=== PATIENT | female | born 1945 | race Caucasian/White ===

== ENCOUNTER 2019-06-28 07:52 | Outpatient (CLI) | payer BC, SELFPAY ==
--- NOTE | ~2019-06-28 | XR_ITS ---
EXAMINATION: XR barium swallow modified DATE: 06/28/2019 09:56 INDICATION: Dysphagia. TECHNIQUE: Modified barium esophagram was performed by myself to administered fluoroscopy, in conjun ction with speech pathologist who administered barium in varying consistencies as per speech patholog ist documentation. This was recorded on tape. A single fluoroscopic spot image was recorded. The DA P for this procedure was 1.3 Gycm2. Fluoroscopy exposure time was 2.0 minutes. FINDINGS: A prominent cricopharyngeus contraction is noted. Oral stage: Adequate function. Pharyngeal phase: Adequate function. Laryngeal penetration: None. Aspiration: None. Laryngeal sensitivity: Present. IMPRESSION: No laryngeal penetration or aspiration seen. Please refer to speech pathologist findings and specific feeding recommendations. Reviewed, dictated and finalized at location A. 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 Please refer to speec h pathologist findings and specific feeding recommendations.
--- NOTE | 2019-06-28 09:42 | STOPEVAL ---
MODIFIED BARIUM SWALLOW EVALUATION RESULTS: Thank you for referring this patient to [facility]. Attending Provider: Alejandro Vila APN fax # [phone] Referring Provider: CLAIRE Outpatient Evaluation Start: 06/28/19 09:31 Freq: Status: Active Protocol: Document 06/28/19 09:31 BECHERERT (Rec: 06/28/19 09:42 BECHERERT [id number]) Therapy Assessment Status Assessment Status Assessment Status Evaluation Outpatient Past Medical History Past Medical History Past Medical History Status Patient Denies Significant Past Medical History Evaluation Information Problem Diagnosis dysphagia; per pt: bad cough Onset approximately 1 year ago Subjective Information Pt denies pneumonia or CVA; Query Text:As Reported By Patient/ denies seeing a neurologist Family but states she sees a machine presser Prior Level of Function Prior Swallow Level Prior Intake Method Oral Prior Diet Regular (Level 7 Diet) Prior Liquid Consistency Thin (Level 0 Diet) Pain Assessment Timing of Pain Assessment Timing of Pain Assessment Assessment Self Report Self Report Pain Level 0 Pain Scale Pain Scale Used Numeric (1 - 10) Pain Score Pain Score 0: Self Report Modified Barium Swallow Evaluation Recent Swallowing History Reports Dysphagia just a bad cough not really during meals Duration of Dysphagia 1 year Other Factors Impacting Dysphagia None History of Pneumonia No Reported Difficult Consistencies Unable to Identify Diet Prior to Swallow Evaluation Regular, Level 7 Liquid Consistency Prior to Swallow Thin (0) Evaluation Consistency Thin Uncontrolled 2 Method of Presentation Straw Oral Preparatory Symptoms None Oral Phase Symptoms None Pharyngeal Phase Symptoms None Severity of Vallecular Residue None - 0% No Residue Severity of Pyriform Sinus Residue None - 0% No Residue 8 Point Laryngeal Penetration-Aspiration Material Does Not Enter Airway Scale Cervical/Esophageal Phase Comments Prominent cricopharyngeus muscle which results in mild backflow into the pyriform sinus; partially cleared with cued dry swallow Thin Uncontrolled 1 Method of Presentation Cup Oral Preparatory Symptoms None Oral Phase Symptoms None Pharyngeal Phase Symptoms None Severity of Vallecular Residue None - 0% No Residue Severity of Pyriform Sinus Residue None - 0% No Residue 8 Point Laryngeal Penetration-Aspiration Material Does Not Enter Airway Scale
== END 2019-06-28 07:53 | disposition home or self-care (01) ==
PROVIDERS: PCP Family Medicine; Visit Provider Nurse Practitioner Family
DX: R05 Cough (principal)
CPT/HCPCS: 92611

== ENCOUNTER 2019-07-03 07:25 | Outpatient (CLI) | payer BC, SELFPAY ==
--- NOTE | ~2019-07-03 | XR_ITS ---
EXAMINATION: XR UGI w barium swallow DATE: 07/03/2019 08:13 INDICATION: Cough. TECHNIQUE: The patient drank thick barium, gas-producing crystals, and thin barium. Fluoroscopy of th e esophagus, stomach, and proximal small bowel was performed. Fluoroscopy exposure time was 0.6 minut es. The total number of images was 275. Total dose-area product was 1.1 Gy-cm^2. COMPARISON: Upper gastrointestinal series 08/02/2017 FINDINGS: There is no mass or stricture of the esophagus. Esophageal motility is normal. There is a s mall sliding hiatal hernia. There was no gastroesophageal reflux with provocative maneuvers. The stom ach and proximal small bowel show normal folding patterns. IMPRESSION: 1. Small sliding hiatal hernia. Reviewed, dictated and finalized at location A. 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
== END 2019-07-03 07:26 | disposition home or self-care (01) ==
LOC: ANHIMG 07:29
PROVIDERS: PCP Family Medicine; Visit Provider Nurse Practitioner Family
DX: R05 Cough (principal); R11.10 Vomiting, unspecified; J45.909 Unspecified asthma, uncomplicated; R91.8 Other nonspecific abnormal finding of lung field; K44.9 Diaphragmatic hernia without obstruction or gangrene
CPT/HCPCS: 74240

== ENCOUNTER 2019-07-22 10:08 | Emergency (ER) | payer BC, SELFPAY ==
[2019-07-22 10:25] VITALS: BP 129/83; PULSE 89; RESP 20; TEMP 36.3; O2SAT 100
--- NOTE | 2019-07-22 10:41 | ED.SKABFB ---
HPI - Skin/Abscess/Foreign Bdy General Chief complaint: Skin/Abscess/Foreign Body Stated complaint: rash/itching all over Time Seen by Provider: 07/22/19 10:36 Source: patient and RN notes reviewed Mode of arrival: ambulatory Limitations: no limitations History of Present Illness HPI narrative: Patient presents today complaining of generalized skin itching that started a few days ago with severe vaginal itching starting yesterday. Denies frequency, dysuria, hematuria, vaginal discharge. She has been using [id number] Lanacane for her vaginal itching. She also reports some recent URI symptoms and has been taking Claritin. MD complaint: rash Related Data Home Medications Medication Instructions Recorded Confirmed amitriptyline 25 mg tablet 25 mg PO DAILY 05/12/19 07/22/19 aripiprazole 15 mg tablet 15 mg PO DAILY 05/12/19 07/22/19 clonazepam 0.5 mg tablet 0.5 mg PO DAILY 05/12/19 07/22/19 lamotrigine 200 mg tablet 200 mg PO BID 05/12/19 07/22/19 aspirin 81 mg tablet,delayed 81 mg PO DAILY 05/19/19 07/22/19 release levothyroxine 25 mcg PO DAILY 07/22/19 07/22/19 Allergies Allergy/AdvReac Type Severity Reaction Status Date / Time Penicillins Allergy Intermediate Hives Verified 07/22/19 10:33 Review of Systems Review of Systems: Narrative: CONSTITUTIONAL: Denies body aches, fever, chills, or sweats. EYES: Denies visual changes, redness, or discharge. ENT: Denies rhinorrhea, congestion, sore throat, or otalgia. CARDIOVASCULAR: Denies chest pain, palpitations, or edema. RESPIRATORY: Denies cough or dyspnea. GASTROINTESTINAL: Denies abdominal pain, nausea, vomiting, or diarrhea. GENITOURINARY: Denies dysuria or hematuria. SKIN: + Generalized itching, vaginal itching MUSCULOSKELETAL: Denies back pain, joint pain, or myalgia. NEUROLOGIC: Denies headache, numbness, tingling, or weakness. PSYCH: Denies depression or anxiety. [facility] Past Medical History Medical History (Updated 07/22/19 @ 10:56 by Supriya Martinez, EAR MOLD LABORATORY TECHNICIAN, BC) Bipolar disorder, unspecified Gastroesophageal reflux disease Hx of vaginal delivery Hypertension Hypothyroidism, unspecified Migraine with aura and without status migrainosus, not intractable Nodule of right lung Normal colonoscopy CARMENZA (obstructive sleep apnea) Vitamin B12 deficiency Vitamin D deficiency Social History Social History Smoking status: Never smoker Second hand tobacco smoke exposure: No Alcohol intake: current Comments At time of signature, I have reviewed and agree with nursing past medical, surgical, social and family history unless otherwise noted. Please see nursing chart for further information. There is no relevant family history pertinent to the presenting complaint Exam Narrative: Exam Narrative: GENERAL: Well-appearing, well-nourished, and in no acute distress. HEAD: Normocephalic, atraumatic. EYES: EOMI. No redness or drainage. Conjunctivae normal. ENT: Mucous membranes pink and moist. NECK: Normal AROM. CHEST: No respiratory distress. Clear to auscultation. HEART: Regular rate and rhythm. No murmur appreciated. Normal peripheral pulses. ABDOMEN: Soft, nontender, nondistended, normal active bowel sounds. MUSCULOSKELETAL: No bony tenderness. EXTREMITIES: Normal range of motion. No edema. SKIN: Warm, dry. No rash seen generally to the skin. Small amount of perivaginal excoriation noted. No papular lesions on the genitals. No vaginal discharge. NEURO: No focal deficits. Alert and oriented x3. Gait steady. PSYCH: Normal affect. No signs of depression or anxiety. Course Vital Signs Vital signs: Vital Signs Temperature 97.3 F L 07/22/19 10:25 Pulse Rate 89 07/22/19 10:25 Respiratory Rate 20 07/22/19 10:25 Blood Pressure 129/83 07/22/19 10:25 Pulse Oximetry 100 07/22/19 10:25 Temperature 97.3 F L 07/22/19 10:25 Pulse Rate 89 07/22/19 10:25 Respiratory Rate 20
== END 2019-07-22 11:03 | disposition home or self-care (01) ==
PROVIDERS: Emergency Provider Nurse Practitioner; PCP Family Medicine
DX: N39.0 Urinary tract infection, site not specified (principal); N76.0 Acute vaginitis; F31.9 Bipolar disorder, unspecified; K21.9 Gastro-esophageal reflux disease without esophagitis; I10 Essential (primary) hypertension; E03.9 Hypothyroidism, unspecified; G47.33 Obstructive sleep apnea (adult) (pediatric)
CPT/HCPCS: 81003; 87077; 87086; 87088; 87186; 99213; G0463

== ENCOUNTER 2019-07-25 22:36 | Emergency (ER) | payer BC, SELFPAY ==
[2019-07-25 22:40] VITALS: BP 138/61; PULSE 87; RESP 18; TEMP 36.1; O2SAT 100
--- NOTE | 2019-07-25 23:00 | ED.FEMALEGU ---
HPI - Female Genitourinary General Chief complaint: Urogenital-Female Stated complaint: VAGINAL BURNING Time Seen by Provider: 07/25/19 22:50 Source: patient and RN notes reviewed Mode of arrival: ambulatory Limitations: no limitations History of Present Illness HPI Narrative: Pt is a 74 y/o female who presents to the ED with c/o vaginal itching and burning starting several days ago. She notes that she was evaluated at an urgent care facility for her symptoms on 07/22/19, and states that she was diagnosed with a UTI and placed on Keflex. Pt notes that her symptoms have worsened since taking the medication. She also reports a yellow-colored vaginal discharge, but denies any fever, chills, ABD pain, or back pain. MD elicited complaint: other (Vaginal Itching and Burning) Onset (ago): day(s) (several) Location of symptoms: vaginal Quality of pain: burning Consistency: progressively worsening Vaginal discharge: yellow Associated symptoms: denies other symptoms Sexual activity: No Related Data Home Medications Medication Instructions Recorded Confirmed amitriptyline 25 mg tablet 25 mg PO DAILY 05/12/19 07/22/19 aripiprazole 15 mg tablet 15 mg PO DAILY 05/12/19 07/22/19 clonazepam 0.5 mg tablet 0.5 mg PO DAILY 05/12/19 07/22/19 lamotrigine 200 mg tablet 200 mg PO BID 05/12/19 07/22/19 aspirin 81 mg tablet,delayed 81 mg PO DAILY 05/19/19 07/22/19 release levothyroxine 25 mcg PO DAILY 07/22/19 07/22/19 Allergies Allergy/AdvReac Type Severity Reaction Status Date / Time Penicillins Allergy Intermediate Hives Verified 07/22/19 10:33 Review of Systems Review of Systems: Narrative: CONSTITUTIONAL: Denies fever, chills, or sweats. GASTROINTESTINAL: Denies abdominal pain, nausea, vomiting, or diarrhea. GENITOURINARY: Denies dysuria or hematuria. Reports vaginal itching and burning. Reports yellow vaginal discharge. MUSCULOSKELETAL: Denies back pain, joint pain, or myalgia. All systems reviewed & are unremarkable except as noted in HPI and below PMFSH Past Medical History Medical History Anemia Anxiety Asthma Bipolar disorder, unspecified Depression Diverticulitis Endometriosis Fibromyalgia Gastroesophageal reflux disease Hx of vaginal delivery Hypertension Hypothyroidism, unspecified Kidney stones Migraine with aura and without status migrainosus, not intractable Nodule of right lung Normal colonoscopy CARMENZA (obstructive sleep apnea) Pneumonia Shingles Vitamin B12 deficiency Vitamin D deficiency Surgical History Surgical History H/O total hysterectomy Hx of lithotripsy Social History Social History Smoking status: Never smoker Second hand tobacco smoke exposure: No Alcohol intake: current Gender identity (if verbalized by the patient): Female Exam Narrative: Exam Narrative: GENERAL: Well-appearing, well-nourished, and in no acute distress. HEAD: Normocephalic, atraumatic. EYES: PERRLA and EOMI. ENT: Nares clear, no rhinorrhea or epistaxis. Mucous membranes moist. NECK: Supple. CHEST: Clear to auscultation. No respiratory distress. HEART: Regular rate and rhythm. No murmur heard. Normal peripheral pulses. ABDOMEN: Soft, nontender, nondistended, normal active bowel sounds. DATA WAREHOUSING ARCHITECT: Labia majora and minora are erythematous, edematous, no vesicles, tender to touch. Vagina without blood. No cervical motion tenderness. No adnexal tenderness or fullness bilaterally. No discharge present. EXTREMITIES: Normal range of motion. No edema. SKIN: Warm, dry, no rash. NEURO: No focal deficits. Alert and oriented. Course Course Emergency Course: Patient presented for continued vaginal irritation in the setting of recent UTI treated with Keflex. Urinalysis is much improved. Advised patient to continue her Keflex as prescribed. In terms of her vaginal irritation, there is erythema, ed
[2019-07-25] MEDS: FLUCONAZOLE 150 MG TABLET PO (23:16)
[2019-07-25 23:48] LABS: Basophils Percent Auto 0.4 % (0.2-1.2); Eosinophils Absolute Auto 0.2 K/mm3 (0-0.3); Eosinophils Percent Auto 2.6 % (0-4.4); Hematocrit 40.8 % (37.0-47.0); Hemoglobin 13.2 g/dL (12.0-15.0); Immature Granulocyte Absolute 0.01 K/mm3 (0.00-0.031); Immature Granulocyte Percent A 0.1 % (0-0.5); Lymphocytes Absolute Auto 3.16 K/mm3 (0.9-3.2); Mean Corpuscular HGB Conc 32.4 g/dl (32-36); Mean Corpuscular Hemoglobin 28.1 pg (26-34); Mean Platelet Volume 8.8 fl (7.4-10.4); Monocytes Absolute Auto 0.6 K/mm3 (0.1-0.6); Monocytes Percent Auto 8.9 % (2.6-8.5); Neutrophils Absolute Auto 3.2 K/mm3 (1.3-6.7); Platelet Count Result 345 k/mm3 (150-375); Red Blood Count 4.69 M/mm3 (4.2-5.4); Red Cell Distribution Width 14.1 % (11.5-14.5); White Blood Count 7.2 K/mm3 (4.5-10.0)
[2019-07-25 23:49] LABS: Blood Urea Nitrogen 6 mg/dL (7-17); Calcium 8.8 mg/dL (8.4-10.2); Carbon Dioxide 26 mmol/L (22-30); Chloride 98 mmol/L (98-107); Estimated CRCL calculation 63 ml/min; Estimated Glomerular Filt Rate > 60; Glucose 88 mg/dL (65-105); Sodium 135 mmol/L (137-145)
[2019-07-25 23:51] LABS: Add Urine Microscopic? NO; Appearance Urine Clear (Clear); Bilirubin Urine Negative (Negative); Blood Urine Negative (Negative); Color Urine Yellow (Yellow); Glucose Urine UA Negative (Negative); Ketones Urine Negative (Negative); Leukocyte Esterase Ur Negative LEU/UL (Negative); Nitrate Urine Negative (Negative); Protein Urine Negative (Negative); Specific Grav Ur 1.019 (1.001-1.035); Urobilinogen Urine Negative mg/dL (<2.0)
[2019-07-26] MEDS: BETAMETHASONE/CLOTRIMAZOLE CR 15 GM TUBE 1 APPLIC TOPICAL (00:25)
[2019-07-26 00:46] VITALS: BP 139/70; PULSE 81; O2SAT 100
== END 2019-07-26 00:46 | disposition home or self-care (01) ==
PROVIDERS: Emergency Provider Emergency Medicine; PCP Family Medicine
DX: N76.0 Acute vaginitis (principal); I10 Essential (primary) hypertension; F41.9 Anxiety disorder, unspecified; F32.9 Major depressive disorder, single episode, unspecified; Z79.82 Long term (current) use of aspirin
CPT/HCPCS: 36415; 80048; 81003; 85025; 87070; 87491; 87591; 87808; 99284; A9270